=== PATIENT | male | born 1945 ===

== ENCOUNTER → 2019-02-22 | Outpatient (CLI) | payer MEDICARE, OTHER | END | disposition home or self-care (01) | LOC: LAB 13:40 → LAB SHORT 13:40 | DX: R30.0 Dysuria (principal) | CPT/HCPCS: 87086 ==

== ENCOUNTER → 2020-01-06 | Outpatient (CLI) | payer MEDICARE, OTHER ==
[2020-01-06 15:40] LABS: Microalb/Creat Ratio UR, Rand 10.667 mg/g (0.000-30.000); Microalbumin, Random Urine 14.4 mg/L (0.000-20.000)
== END | disposition home or self-care (01) ==
LOC: LAB 14:19 → LAB SHORT 14:19 → LAB FUT 08-04 09:15
PROVIDERS: Student in an Organized Health Care Education/Training Program
DX: E11.8 Type 2 diabetes mellitus with unspecified complications (principal)
CPT/HCPCS: 82043; 82570

== ENCOUNTER → 2023-01-15 | Outpatient (CLI) | payer MEDICARE, OTHER ==
[2023-01-16 14:12] LABS: BUN 16 mg/dL (8-27); BUN/CREATININE RATIO 20 (10-24); CALCIUM, SERUM 9.6 mg/dL (8.6-10.2); CARBON DIOXIDE, TOTAL 24 mmol/L (20-29); CHLORIDE, SERUM 94 mmol/L (96-106); CHOLESTEROL, TOTAL 217 mg/dL (100-199); CREATININE, SERUM 0.81 mg/dL (0.76-1.27); GLUCOSE, SERUM 105 mg/dL (70-99); HDL CHOLESTEROL 47 mg/dL (>39); LDL CHOLESTEROL CALC 153 mg/dL (0-99); POTASSIUM, SERUM 4.1 mmol/L (3.5-5.2); SODIUM, SERUM 133 mmol/L (134-144); TRIGLYCERIDES 94 mg/dL (0-149); VLDL CHOLESTEROL CAL 17 mg/dL (5-40)
[2023-01-16 22:07] LABS: HEMOGLOBIN A1C 6.4 % (4.8-5.6)
== END | disposition home or self-care (01) ==
LOC: LAB 08:38 → LAB SHORT 08:38 → LAB FUT 06-26 12:10
PROVIDERS: Student in an Organized Health Care Education/Training Program
DX: E11.8 Type 2 diabetes mellitus with unspecified complications (principal)
CPT/HCPCS: 36415; 80048; 80061; 83036